=== PATIENT | male | born 1990 | race Hispanic/Latino ===

== ENCOUNTER 2017-07-18 07:42 | Inpatient (IN) | payer MEDICAID, OTHER ==
[2017-07-18 07:47] VITALS: BMI 27.5
[2017-07-18 08:21] LABS: BASO % 0.4 % (0.0-2.0); EOS % 1.1 % (0.0-4.0); HEMATOCRIT 45.4 % (35.0-51.0); LYMPH # 0.9 K/uL (1.0-4.3); MEAN CORPUSCULAR HEMOGLOBIN 31.2 pg (27.0-31.0); MEAN CORPUSCULAR HGB CONC 35.4 g/dL (33.0-37.0); MEAN PLATELET VOLUME 9.7 fL (7.2-11.7); MONO # 0.6 K/uL (0.0-0.8); MONO % 13.2 % (0.0-10.0); NRBC % 0.2 % (0.0-2.0); RED CELL DISTRIBUTION WIDTH 13.8 % (11.5-14.5); WHITE BLOOD COUNT 4.3 K/uL (4.8-10.8)
[2017-07-18 08:31] LABS: CHLORIDE 98 mmol/L (98-107); POTASSIUM 3.7 mmol/L (3.6-5.2); SODIUM 141 mmol/L (132-148)
--- NOTE | 2017-07-18 08:32 | C.PDOC ---
History Of Present Illness 27 yo male w/PMHx of bipolar, non-complaint with medication, come in for evaluation of " not feeling good, hear voices for 3 weeks, did not sleep for past few nights". Pt admits to multiple previous inpatient treatment. Pt denies any active physical complaints. Otherwise, pt denies suicidal ideation or attempts, denies drug abuse. Ambulate to ED with luggage, saying " Im staying with my friend now". Time Seen by Provider: 07/18/17 07:49 Chief Complaint (Nursing): Psychiatric Evaluation History Per: Patient Past Medical History Reviewed: Historical Data, Nursing Documentation, Vital Signs Vital Signs: Last Vital Signs Temp 98.1 F 07/18/17 07:48 Pulse 91 H 07/18/17 07:48 Resp 20 07/18/17 07:48 BP 134/87 07/18/17 07:48 Pulse Ox 97 07/18/17 10:17 - Medical History PMH: Bipolar Disorder Surgical History: No Surg Hx Family History: States: Unknown Family Hx - Social History Hx Tobacco Use: Yes Hx Alcohol Use: No Hx Substance Use: No - Immunization History Hx Tetanus Toxoid Vaccination: Yes Hx Influenza Vaccination: Yes Hx Pneumococcal Vaccination: Yes Review Of Systems Except As Marked, All Systems Reviewed And Found Negative. Constitutional: Negative for: Fever, Chills Eyes: Negative for: Vision Change ENT: Negative for: Throat Pain Cardiovascular: Negative for: Chest Pain, Palpitations Respiratory: Negative for: Cough, Shortness of Breath, Wheezing Gastrointestinal: Negative for: Nausea, Vomiting, Abdominal Pain, Diarrhea Genitourinary: Negative for: Dysuria, Frequency, Incontinence, Penile Discharge Musculoskeletal: Negative for: Neck Pain, Back Pain Skin: Negative for: Rash Neurological: Negative for: Weakness, Numbness, Altered Mental Status, Headache , Dizziness Physical Exam - Physical Exam Appears: Well, Non-toxic, No Acute Distress Skin: Normal Color, Warm, Dry, No Rash Head: Atraumatic, Normacephalic Eye(s): bilateral: PERRL Nose: No Flaring, No Discharge, No Deformity, No Tenderness Oral Mucosa: Moist, No Drooling, No Trismus Tongue: Normal Appearing Lips: Normal Appearing Throat: No Erythema, No Exudate, No Drooling Neck: Trachea Midline, No Midline Cervical Tenderness, No Paracervical Tenderness, No Step Off Deformity, Supple Chest: Symmetrical Cardiovascular: Rhythm Regular, No JVD Respiratory: No Decreased Breath Sounds, No Accessory Muscle Use, No Stridor, No Wheezing Gastrointestinal/Abdominal: Soft, No Tenderness, No Distention, No Guarding Back: No CVA Tenderness Extremity: Normal ROM, No Tenderness, No Deformity, No Swelling Neurological/Psych: Oriented x3, Normal Speech ED Course And Treatment - Laboratory Results Result Diagrams: 07/18/17 08:08 07/18/17 08:08 Lab Interpretation: Normal O2 Sat by Pulse Oximetry: 97 Pulse Ox Interpretation: Normal Progress Note: On re-eavluation, pt remained hemodynamicalys table. Blood work review and appears without acute abnormalities. Pt is medically cleared for psych evaluation. Crisis was caleld for further eval/tx/dispo. Pt was evaluated by Crisis, discussed with and admission recommend. Disposition - Disposition Disposition: HOSPITALIZED Disposition Time: : Condition: STABLE - Clinical Impression Clinical Impression: Manic bipolar I disorder
[2017-07-18 08:33] LABS: AST/SGOT 27 U/L (17-59); BILIRUBIN,TOTAL 1.2 mg/dL (0.2-1.3); CARBON DIOXIDE 25 mmol/L (22-30); GFR AFRICAN-AMERICAN > 60
[2017-07-18 08:34] LABS: ALB/GLOB RATIO 1.2 (1.0-2.1); ALKALINE PHOSPHATASE 54 U/L (38-126); ALT/SGPT 36 U/L (21-72); BLOOD UREA NITROGEN 15 mg/dL (9-20); CALCIUM 9.7 mg/dl (8.6-10.4); GLUCOSE,RANDOM 84 mg/dL (75-110); TOTAL PROTEIN 8.6 g/dL (6.3-8.3)
[2017-07-18 08:35] LABS: ALCOHOL SERUM < 10 mg/dl (0-10)
[2017-07-18 08:38] LABS: RBC URINE < 1 /hpf (0-3); URINE BILIRUBIN NEGATIVE (NEGATIVE); URINE BLOOD NEGATIVE (NEGATIVE); URINE COLOR Amber (YELLOW); URINE GLUCOSE (UA) NORMAL (Normal); URINE KETONE TRACE mg/dL (NEGATIVE); URINE LEUKOCYTE ESTERASE NEG Leu/uL (Negative); URINE PROTEIN NEGATIVE (NEGATIVE); WBC URINE < 1 /hpf (0-5)
[2017-07-18 10:47] VITALS: O2SAT 98
--- NOTE | 2017-07-18 12:03 | PCM.BM ---
<Alexandrea Mcdonald - Last Filed: 07/18/17 12:00> Treatment Plan Problems - Problems identified on initial assessmt Depression Date Initiated: 07/18/17 Time Initiated: 12:01 Assessment reference: NA Status: Active Priority: 1 Auditory Hallucination Date Initiated: 07/18/17 Time Initiated: 12:03 Assessment reference: NA Status: Monitor Priority: 2 Treatment assets and liabiliti Patient Assests: cooperative Patient Liabilities: live alone, poor support system - Milieu Protocol Maintain good personal hygiene: every shift Encourage regular showers, every shift Remind patient to perform daily oral care, every shift Assist patient to perform ADL's Maintain personal safety: every shift Educate patient to report safety concerns to staff, every shift Monitor environment for contraband/sharps Medication safety: Monitor for expected outcome, potential side effects: daily, Assess barriers to learning: daily, Assess readiness for medication education: daily <Tracie Adrian - Last Filed: 07/19/17 08:55> Discharge/Continuing Care - Education Needs Education Needs: Patient Medication, Patient Coping Skills, Patient Placement options, Patient Community resources - Discharge Discharge Criteria: Tolerates medication w/o severe side effects, Reduction of target symptoms <Leon Hatch - Last Filed: 07/19/17 15:22> - Diagnosis (1) Major depressive disorder, recurrent, severe with psychotic features Status: Acute Interventions: Assess/had just medications daily and/or as needed See patient on an individual basis 7x/week to assess status of depression Discussed risks, benefits, side effects and alternatives of medications 07/19/17 15:18 (2) Alcohol use disorder, mild, in early remission Status: Acute Interventions: Assess 7x/week regarding severity of withdrawal symptoms Educated regarding risks, benefits, side effects and alternatives of medications Used motivational interviewing for abstinence Use CBT for relapse prevention Medication management for withdrawal symptoms Encourage medication assisted treatment 07/19/17 15:20
--- NOTE | 2017-07-18 19:07 | PCM.PSYCH ---
Initial Psychiatric Evaluation - Initial Psychiatric Evaluation Type of Admission: Voluntary Legal Status: Capacity Chief Complaint (in patient's own words): I need help for my depression History of Present Illness and Precipitating Events: Patient is a 27 years old, single, unemployed, male with history of bipolar disorder, diagnosed at 15 years of age, noncompliant with treatment was admitted due to worsening of symptoms of depression and auditory hallucinations or last 2 weeks. Patient reported he is depressed with decreased sleep, no sleep for last 2 days. Also decrease appetite for last 2 days, no weight change, started having suicidal ideations with plan to jump from a bridge. Denied any homicidal ideations or any previous suicidal attempts. Also reported having auditory hallucinations for last 2 weeks. Could not elaborate the content. Also reported hearing voices off and on in the past. According to patient he was not going to any psychiatrist regularly. Was going to hospital and was discharging with prescription of Seroquel over time. After finishing Seroquel was not continuing treatment every time. History of more than 10 inpatient psychiatric admissions and last 3 years. Patient reported last time was taking Seroquel 300 mg and his last dose was 1 month ago. Patient has history of cannabis, cocaine and alcohol use. He started using cannabis at the age of 12 years, was using daily for $10. Last use reported one year ago. Cocaine started at the age of 17 years, once per week. Last used 2 years ago. Alcohol started at the age of 12 years. He was drinking once a week sometimes up to the point of intoxication. Last drink reported 3 months ago. Also history of blackouts and seizures. He has no history of detox but history of 3-4 rehabs. Patient also smokes half pack of cigarettes daily. He refuses to take nicotine patch. Patient also has history of using energy drinks. He was using 3-4 large energy drinks daily. He was also taking 2 scoops of pre-work out daily for 2 years. His last used of pre-workout and energy drinks 2 months ago. Patient also has legal history. Reported he was arrested for burglary 3 years ago. Currently on probation. [facility] for last 1 [facility]. Left today. He was born in [place]. Has high school graduation. Currently he is unemployed. 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 He is never and has no children. His height is 6 feet 3 inches and weight is 220 pounds. Current Medications: Active Medications Generic Name Dose Route Start Last Admin Trade Name Freq PRN Reason Stop Dose Admin Gabapentin 300 mg 07/18/17 19:00 Neurontin PO BID KALIN Haloperidol 5 mg 07/18/17 18:53 Haldol PO Q6 PRN Agitation Ibuprofen 400 mg 07/18/17 18:55 Motrin Tab PO Q6 PRN Pain, moderate (4-7) Pneumococcal Polyvalent Vaccine 0.5 ml 07/21/17 10:00 Pneumovax 23 Vaccine IM 07/21/17 10:01 .ONCE ONE Quetiapine Fumarate 100 mg 07/18/17 22:00 Seroquel PO HS KALIN Sertraline HCl 50 mg 07/19/17 10:00 Zoloft PO DAILY KALIN Trazodone HCl 50 mg 07/18/17 22:00 Desyrel PO HS KALIN Past Psychiatric History - Past Psychiatric History Previous Treatment History: Inpatient History of Abuse: None reported History of ETOH/Drug Use: See HPI History of Family Illness: None reported Pertinent Medical Hx (Current Medical&Sleep Prob, Allergies): Allergies Allergy/AdvReac Type Severity Reaction Status Date / Time No Known Allergies Allergy Verified 07/18/17 07:46 QUEtiapine [SEROquel] 300 mg PO BID 07/18/17 Review of Systems - Psychiatric Psychiatric: Depression, Hallucinations Mental Status Examination - Personal Presentation Personal Presentation: Looks stated age - Affect Affect: Depressed - Motor Activity Motor Activity: Calm - Reliability in Providing Information Reliability in Providing Information: Fair - Speech Speech: Organized - Mood Mood: Depressed - Formal Thought Process Formal Thought Process: Hallucinations - Hallucinations/Delusions Hallucinations: Auditory Delusions: Other (None reported) - Obsessions/Compulsions Obsessions: None Compulsions: None - Cognitive Functions Orientation: Person, Place, Situation, Time Sensorium: Alert Attention/Concentration: Attentive Abstract Thinking: Gardiner Estimate of Intelligence: Average Judgement: Imparied, as evidence by: Lack of insight into illness Memory: Recent intact, as evidence by: 3/3 object recall, Remote intact, as evidenced by: Ability to recall historical events - Risk Risk: Withdrawal, Diminished functioning - Strength & Assets Inventory Strength & Assets Inventory: Family support, Cooperative - Limitations Limitations: Other DSM 5 DX - DSM 5 DSM 5 Diagnosis: Major depressive disorder recurrent severe with psychotic features Alcohol use disorder in remission Cannabis use disorder in sustained remission 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
--- NOTE | 2017-07-19 15:25 | PCM.PYCHPN ---
Psychiatric Progress Note - Psychiatric Progress Note Patient seen today, length of contact: 15 minutes Patient Chief Complaint: I'm feeling tired. Problems Identified/Issues Discussed: Patient seen. Chart reviewed. Case discussed with staff. Issues related to illness and treatment were discussed with the patient. Reported compliant with treatment with no adverse affects. Tolerating treatment very well. Staff reported patient does not want to take trazodone. Also refuses to take sertraline this morning. Patient refused to come out of his bed and to attend groups. Patient reported feeling little better but also feeling tired. At the time of evaluation, patient was awake alert oriented 3, no delusions, no auditory or visual hallucinations, no suicidal ideations or homicidal ideations. Medical Problems: None reported Diagnostic Results: Reviewed DSM 5 Symptoms Update: Some improvement with treatment Medication Change: Yes (Discontinue trazodone) Medical Record Reviewed: Yes Mental Status Examination - Cognitive Function Orientation: Person, Place, Situation, Time Memory: Intact Attention: WNL Concentration: WNL Association: [facility] Fund of Knowledge: [facility] Decription of patient's judgement and insights: Fair - Mood Mood: Depressed (Less than before) - Affect Affect: Depressed - Speech Speech: Appropriate - Formal Thought Process Formal Thought Process: No Impairment - Suicidal Ideation Suicidal Ideation: No - Homicidal Ideation Homicidal Ideation: No Goal/Treatment Plan - Goal/Treatment Plan Need for Continued Stay: Remain at risks for inpatient hospitalization, Discharge may exacerbated symptoms, Severe functional impairment Progress Toward Problem(s) and Goals/Treatment Plan: Patient education Supportive therapy Continue treatment as before Estimated Date of D/C: 07/26/17 - Smoking Cessation Smoking Cessation Initiated: No
--- NOTE | 2017-07-20 12:19 | PCM.PYCHPN ---
Psychiatric Progress Note - Psychiatric Progress Note Patient seen today, length of contact: 15 minutes Patient Chief Complaint: I'm feeling tired. Still hear voices. Problems Identified/Issues Discussed: Patient seen. Chart reviewed. Case discussed with staff. Issues related to illness and treatment were discussed with the patient. Reported compliant with treatment with no adverse affects. Tolerating treatment very well. Staff reported patient does not want to take trazodone and sertraline. Today patient was visible on the unit watching TV. Patient reported feeling little better but also feeling tired but still hearing voices. We will increase the dose of Seroquel to 200 mg at bedtime. At the time of evaluation, patient was awake alert oriented 3, no delusions, no auditory or visual hallucinations, no suicidal ideations or homicidal ideations. Medical Problems: None reported Diagnostic Results: Reviewed DSM 5 Symptoms Update: Improving with treatment Medication Change: Yes (Dose of Seroquel increased to 200 mg at bedtime) Medical Record Reviewed: Yes Mental Status Examination - Cognitive Function Orientation: Person, Place, Situation, Time Memory: Intact Attention: WNL Concentration: WNL Association: [facility] Fund of Knowledge: [facility] Decription of patient's judgement and insights: Fair - Mood Mood: Anxious - Affect Affect: Depressed - Speech Speech: Appropriate - Formal Thought Process Formal Thought Process: No Impairment Psychotic Thoughts and Behaviors: None - Suicidal Ideation Suicidal Ideation: No - Homicidal Ideation Homicidal Ideation: No Goal/Treatment Plan - Goal/Treatment Plan Need for Continued Stay: Remain at risks for inpatient hospitalization, Discharge may exacerbated symptoms, Severe functional impairment Progress Toward Problem(s) and Goals/Treatment Plan: Patient education Supportive therapy Will increase the dose of Seroquel to 200 mg at bedtime. Continue rest of the treatment as before Estimated Date of D/C: 07/26/17 - Smoking Cessation Smoking Cessation Initiated: No Reason for not providing: Patient doesn't smoke cigarettes
[2017-07-20] MEDS ORDERED: DiphenhydrAMINE 50 mg/ml Inj IM STA (14:22)
[2017-07-20] MEDS ORDERED: DiphenhydrAMINE 50 mg/ml Inj ONE (14:27)
[2017-07-20] MEDS ORDERED: DiphenhydrAMINE 50 mg/ml Inj IM ONE (18:39)
[2017-07-21 09:50] VITALS: BP 130/93; PULSE 75; RESP 20; TEMP 97
[2017-07-21] MEDS ORDERED: Pneumococcal 23-Valent Vaccine IM ONE (10:00)
[2017-07-21] MEDS ORDERED: Influenza Vaccine 60 mcg/0.5 mL SYR (4YR UP) IM ONE (10:00)
--- NOTE | 2017-07-21 17:59 | PCM.PYCHDC ---
Mental Status Examination - Mental Status Examination Orientation: Person, Place, Situation, Time Memory: Intact Mood: Neutral Affect: Other (Appropriate) Speech: Soft Attention: WNL Concentration: WNL Association: WNL Fund of Knowledge: WNL Formal Thought Process: No Impairment Description of patient's judgement and insight: Fair Psychotic Thoughts and Behaviors: None Suicidal Ideation: No Current Homicidal Ideation?: No Discharge Summary - Discharge Note Reason for Hospitalization: Depression Laboratory Data: Reviewed Consultations:: List each consultation separately and include: 1. Reason for request. 2. Findings. 3. Follow-up Summary of Hospital Course include:: 1. Description of specific treatment plan utilized for patients during their course of treatmen. 2. Summarize the time- course for resolution of acute symptoms and/or regressed behaviors. 3. Describe issues identified and worked on during hospitalization. 4. Describe medication utilized. 5. Describe medical problems identified and treated. 6. Reassessment of suicide risk Summary of Hospital Course: Patient is a 27 years old, single, unemployed, male with history of bipolar disorder, diagnosed at 15 years of age, noncompliant with treatment was admitted due to worsening of symptoms of depression and auditory hallucinations or last 2 weeks. Patient reported he is depressed with decreased sleep, no sleep for last 2 days. Also decrease appetite for last 2 days, no weight change, started having suicidal ideations with plan to jump from a bridge. Denied any homicidal ideations or any previous suicidal attempts. Also reported having auditory hallucinations for last 2 weeks. Could not elaborate the content. Also reported hearing voices off and on in the past. According to patient he was not going to any psychiatrist regularly. Was going to hospital and was discharging with prescription of Seroquel over time. After finishing Seroquel was not continuing treatment every time. History of more than 10 inpatient psychiatric admissions and last 3 years. Patient reported last time was taking Seroquel 300 mg and his last dose was 1 month ago. Patient has history of cannabis, cocaine and alcohol use. He started using cannabis at the age of 12 years, was using daily for $10. Last use reported one year ago. Cocaine started at the age of 17 years, once per week. Last used 2 years ago. Alcohol started at the age of 12 years. He was drinking once a week sometimes up to the point of intoxication. Last drink reported 3 months ago. Also history of blackouts and seizures. He has no history of detox but history of 3-4 rehabs. Patient also smokes half pack of cigarettes daily. He refuses to take nicotine patch. Patient also has history of using energy drinks. He was using 3-4 large energy drinks daily. He was also taking 2 scoops of pre-work out daily for 2 years. His last used of pre-workout and energy drinks 2 months ago. Patient also has legal history. Reported he was arrested for burglary 3 years ago. Currently on probation. Patient was living at [facility] for last 1 month. Left today. He was born in [place]. Has high school graduation. Currently he is unemployed. 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 He is never and has no children. His height is 6 feet 3 inches and weight is 220 pounds. Patient was admitted due to depression and was started on treatment including sertraline, Seroquel, trazodone and other when necessary medications. Patient refuses to take sertraline and then trazodone. Later patient refused to take Seroquel. Patient reported that he is not taking medication because he wants to go to [facility] where he cannot get some medications. Education provided still patient refused to take medications. Patient was feeling better today. Requesting discharge. As patient was stable, patient was discharged. At the time of evaluation and discharge, patient was awake alert oriented 3, had no delusions, no auditory or visual hallucinations, no suicidal ideations or homicidal ideations. Patient was discharged in a stable condition. - Diagnosis (1) Major depressive disorder, recurrent, severe with psychotic features Status: Acute (2) Alcohol use disorder, mild, in early remission Status: Acute - Final Diagnosis (DSM 5) Condition upon Discharge: STABLE Disposition: HOME/ ROUTINE Follow-up Treatment Plan: We'll go to [facility] Prescriptions/Medication Reconciliation: Gabapentin [Neurontin] 300 mg PO BID #60 cap - Smoking Cessation Smoking Cessation Medication prescribed: No - Antipsychotic Medications Pt discharged on 2 or more routine antipsychotic medications: No
== END 2017-07-21 13:20 | disposition home or self-care (01) | DRG 430 ==
LOC: C.ER 07:42 → C.5E 10:18
DX: F33.3 Major depressive disorder, recurrent, severe with psychotic symptoms (principal); Z91.14 Patient's other noncompliance with medication regimen; F10.21 Alcohol dependence, in remission; F17.210 Nicotine dependence, cigarettes, uncomplicated; F12.21 Cannabis dependence, in remission; F14.21 Cocaine dependence, in remission